=== PATIENT | female | born 1960 | race Caucasian/White ===

== ENCOUNTER → 2017-05-07 | Outpatient (REF) | payer BC ==
[2017-05-10 00:06] LABS: F8 ACTIVITY FOR F8 PANEL 76 % (57-163); F8 ACTIVITY vWB FOR F8 PANEL 41 % (50-200); F8 ANTIGEN FOR F8 PANEL 107 % (50-200); INTERPRETATION: Note (.)
== END ==
LOC: M LAB REF 17:11
PROVIDERS: ATTEND Internal Medicine Medical Oncology
DX: D69.6 Thrombocytopenia, unspecified (principal)

== ENCOUNTER → 2021-03-03 | Outpatient (CLI) | payer MEDICARE ==
[~2021-03-03] MED LIST: AMLO1TAB25 PO; ATOR40TA75 PO; BAYE325T12 PO; BUPR75TA5 PO; BYST10TA2 PO; CITA20TA7 PO; ESSETAB4 PO; HYDR-3910 PO; HYDR500C3 PO; INCR1INH INH; METO50TA7 PO; PROAAER10 INH; SING10TA32 PO; SYMB16INH INH; VITA100018 PO
--- NOTE | 2021-03-03 09:59 | REP ---
INDICATION: THROMBOCYTOSIS. COMPARISON: None. TECHNIQUE: Complete abdominal sonography. FINDINGS: Scanning through the right upper quadrant the abdomen demonstrates a normal sized and walled gallbladder without evidence of stone or polyp. Common bile duct is normal measuring 0.5 cm in greatest diameter. No focal liver lesion is seen. The liver is not enlarged. No pancreatic abnormality is seen. The tail of the pancreas is obscured by abdominal gas. A normal caliber aorta is seen, 2.6 cm in greatest AP dimension. Scanning in the left upper quadrant demonstrates a normal size homogeneous spleen measuring 9.0 cm in greatest transverse dimension. No focal splenic lesion is seen. There is no evidence of ascites. Renal cortical echogenicity pattern is normal in contours are smooth bilaterally. The right renal dimensions are 10.6 x 5.4 x 5.5 cm. Left renal dimensions are 10.1 x 5.1 x 5.2 cm. There is no evidence of hydronephrosis, cyst or mass. IMPRESSION: Unremarkable complete abdominal sonogram. No evidence of organomegaly. <Electronically signed by Van Jones > 03/03/21 0944
== END ==
LOC: M RAD 09:19
PROVIDERS: ATTEND Internal Medicine Hematology & Oncology
DX: D47.3 Essential (hemorrhagic) thrombocythemia (principal)